=== PATIENT | female | born 1950 | race Caucasian/White ===

== ENCOUNTER 2018-03-15 09:05 | Emergency (ER) | payer MEDICARE, OTHER ==
[2018-03-15] MEDS: IBUPROFEN 600 MG TAB PO (10:28)
[2018-03-15] MEDS: CYCLOBENZAPRINE 10 MG TAB PO (10:28)
== END 2018-03-15 11:10 | disposition home or self-care (01) ==
LOC: FTE 09:05
DX: R07.89 Other chest pain (principal); M25.552 Pain in left hip; M62.830 Muscle spasm of back; I10 Essential (primary) hypertension
CPT/HCPCS: 72170; 73510; 99284-25